=== PATIENT | female | born 1975 | race American Indian/Alaskan Native ===

== ENCOUNTER 2017-07-20 11:05 | Inpatient (IN) | payer BC ==
[2017-07-20 11:58] LABS: Hematocrit 22.3 % (30.3-42.9); Hemoglobin 6.7 gm/dl (10.1-14.3); Red Blood Count 3.58 M/mm3 (3.65-5.03); Red Cell Distribution Width 20.8 % (13.2-15.2)
[2017-07-20] MEDS ORDERED: NACL 0.9% 500 ML 500 ML IV ONE (12:14)
--- NOTE | 2017-07-20 13:01 | Emergency Department Report ---
- General Chief complaint: Weakness Stated complaint: VAG BLEED Time Seen by Provider: 07/20/17 11:54 Source: patient Mode of arrival: Ambulatory Limitations: No Limitations - History of Present Illness Initial comments: 42-year-old female with a past medical history of anemia, fibroids (previously treated with myomectomy in 2006) presents to the hospital with complains of vaginal bleeding, weakness, fatigue, and dizziness and thinks she is anemic again. Patient has a history of iron deficiency anemia and has required blood transfusion in the past. She is taking iron tablets 25 mg once a day but has not taken any for the past 2 days due to nausea and GI upset. Patient's menstrual cycle since July 12 blood bleeding increased since last night. This morning patient required 2 pads and one tampon at one time but has not used any additional past tampon. Anemia symptoms include fatigue, generalized weakness, and lightheadedness. No syncope reported. Intermittent suprapubic cramps about significant pain - Related Data Home Medications Medication Instructions Recorded Confirmed Last Taken Ferrous Sulfate [Iron] 325 mg PO QDAY 07/20/17 07/20/17 07/18/17 Allergies Allergy/AdvReac Type Severity Reaction Status Date / Time Penicillins Allergy Anaphylaxis Verified 07/20/17 11:24 shellfish derived Allergy Anaphylaxis Verified 07/20/17 11:24 Sulfa (Sulfonamide Allergy Rash Verified 07/20/17 11:24 Antibiotics) ED Review of Systems ROS: Stated complaint: VAG BLEED Other details as noted in HPI Comment: All other systems reviewed and negative ED Past Medical Hx - Past Medical History Previous Medical History?: Yes Additional medical history: Anemia, fibroids - Surgical History Past Surgical History?: Yes Additional Surgical History: 2007 Myomectomy - Social History Smoking Status: Never Smoker Substance Use Type: None - Medications Home Medications: Home Medications Medication Instructions Recorded Confirmed Last Taken Type Ferrous Sulfate [Iron] 325 mg PO QDAY 07/20/17 07/20/17 07/18/17 History ED Physical Exam - General Limitations: No Limitations - Other Other exam information: General: No limitations, patient is alert in no acute distress Head exam: Atraumatic, normocephalic Eyes exam: Normal appearance ENT: Moist mucous membrane, normal oropharynx Neck exam: Normal inspection, full range of motion Respiratory exam: Clear to auscultation bilateral, no wheezes, rales, crackles Cardiovascular: Normal rate and rhythm, normal heart sounds Abdomen: Soft, nondistended, suprapubic tenderness, with normal bowel sounds, no rebound, or guarding Extremity: Full range of motion normal inspection no deformity Back: Normal Inspection, full range of motion, no tenderness Neurologic: Alert, oriented x3, cranial nerves intact, no motor or sensory deficit Psychiatric: normal affect, normal mood Skin: Warm, dry, intact ED Course Vital Signs 07/20/17 07/20/17 07/20/17 11:19 12:22 12:30 Temperature 98.2 F Pulse Rate 97 H 86 83 Respiratory 16 11 L 13 Rate Blood Pressure 136/86 130/89 O2 Sat by Pulse 98 100 100 Oximetry 07/20/17 12:48 Temperature Pulse Rate Respiratory 20 Rate Blood Pressure O2 Sat by Pulse Oximetry - Consultations Consultation #1: 07/20/17 13:11 case d/w Dr dover. She came to eval pt in ed. request for Hospitalist to admit 07/20/17 13:19 Dr Dover agrees to admit pt ED Medical Decision Making - Lab Data Result diagrams: 07/20/17 11:42 07/20/17 12:47 Lab Results 07/20/17 07/20/17 07/20/17 Range/Units 11:30 11:42 12:47 WBC 6.4 (4.5-11.0) K/mm3 RBC 3.58 L (3.65-5.03) M/mm3 Hgb 6.7 L (10.1-14.3) gm/dl Hct 22.3 L (30.3-42.9) % MCV 62 L (79-97) fl MCH 19 L (28-32) pg MCHC 30 (30-34) % RDW 20.8 H (13.2-15.2) % Plt Count 467 H (140-440) K/mm3 PT (12.2-14.9) Sec. INR (0.87-1.13) APTT (24.2-36.6) Sec. Sodium 141 (137-145) mmol/L Potassium 3.9 (3.6-5.0) mmol/L Chloride 104.0 (98-107) mmol/L Carbon Dioxide 25 (22-30) mmol/L Anion Gap 16 mmol/L BUN 16 (7-17) mg/dL Creatinine 0.8 (0.7-1.2) mg/dL Estimated GFR > 60 ml/min BUN/Creatinine Ratio 20 % Glucose 94 (65-100) mg/dL Calcium 8.9 (8.4-10.2) mg/dL Blood Type A POSITIVE Antibody Screen Negative Crossmatch See Detail 07/20/17 Range/Units 12:47 WBC (4.5-11.0) K/mm3 RBC (3.65-5.03) M/mm3 Hgb (10.1-14.3) gm/dl Hct (30.3-42.9) % MCV (79-97) fl MCH (28-32) pg MCHC (30-34) % RDW (13.2-15.2) % Plt Count (140-440) K/mm3 PT 13.8 (12.2-14.9) Sec. INR 1.01 (0.87-1.13) APTT 29.8 (24.2-36.6) Sec. Sodium (137-145) mmol/L Potassium (3.6-5.0) mmol/L Chloride (98-107) mmol/L Carbon Dioxide (22-30) mmol/L Anion Gap mmol/L BUN (7-17) mg/dL Creatinine (0.7-1.2) mg/dL Estimated GFR ml/min BUN/Creatinine Ratio % Glucose (65-100) mg/dL Calcium (8.4-10.2) mg/dL Blood Type Antibody Screen Crossmatch hcg neg - EKG Data -: EKG Interpreted by [place] EKG shows normal: sinus rhythm, axis (40), QRS complexes (qrsd 79), ST-T waves ( no stemi/t wave) Rate: normal (81) - EKG Data When compared to previous EKG there are: previous EKG unavailable - Radiology Data US transvag/pelvic: pending - Medical Decision Making Symptomatic anemia Secondary to iron deficiency and acute blood loss secondary to menorrhagia Menorrhagia Likely secondary to uterine fibroid US pending 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 ED Disposition Clinical Impression: Menorrhagia, Symptomatic anemia, Iron deficiency anemia Disposition: OP ADMIT IP TO THIS HOSP Is pt being admited?: Yes Condition: Stable Time of Disposition: 13:17 (Margarita Chisholm)
[2017-07-20 13:05] LABS: INR 1.01 (0.87-1.13)
[2017-07-20 13:06] LABS: Partial Thromboplastin Time 29.8 Sec. (24.2-36.6)
[2017-07-20 13:12] LABS: BUN/Creatinine Ratio 20; Blood Urea Nitrogen 16 mg/dL (7-17); Calcium 8.9 mg/dL (8.4-10.2)
[2017-07-20 13:13] LABS: Hemolysis Index 0
--- NOTE | 2017-07-20 13:20 | History and Physical Report ---
History of Present Illness Date of examination: 07/20/17 Date of admission: 07/20/17 Chief complaint: heavy vaginal bleeding History of present illness: This is a 42 yo came to Er for bleeding for the past several days. She states that she has ahx of fibroids and has appt with Dr. Leger next week for uterine embolization. She states that she has had a myomectomy in 2006 and has not had any f/u. She states that she has changed her pad every 1 hr. She denies any lightheadeness nor dizziness. She is . 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 denies: chlamydia, gonorrhea, hepatitis B, hepatitis C, herpes, HIV, syphilis Family/Genetic History: heart disease (father) Social history: no significant social history, . denies: smoking, alcohol abuse, prescription drug abuse Medications and Allergies Allergies Allergy/AdvReac Type Severity Reaction Status Date / Time Penicillins Allergy Anaphylaxis Verified 07/20/17 11:24 shellfish derived Allergy Anaphylaxis Verified 07/20/17 11:24 Sulfa (Sulfonamide Allergy Rash Verified 07/20/17 11:24 Antibiotics) Review of Systems All systems: negative - Vital Signs Vital signs: Vital Signs Temp Pulse Resp BP Pulse Ox 98.2 F 97 H 16 136/86 98 07/20/17 11:19 07/20/17 11:19 07/20/17 11:19 07/20/17 11:19 07/20/17 11:19 Temp Pulse Resp BP Pulse Ox 98.2 F 83 20 130/89 100 07/20/17 11:19 07/20/17 12:30 07/20/17 12:48 07/20/17 12:30 07/20/17 12:30 - Physical Exam Breasts: Positive: normal Cardiovascular: Regular rate, Normal S1 Lungs: Positive: Clear to auscultation, Normal air movement Abdomen: Positive: normal appearance, soft, normal bowel sounds. Negative: distention, tenderness, guarding Genitourinary (Female): Positive: normal external genitalia, normal perenium Vulva: both: normal Vagina: Positive: normal moisture Cervix: Negative: lesion Uterus: Positive: enlarged. Negative: tender Adnexa: both: normal Anus/Rectum: Positive: normal perianal skin Extremities: Positive: normal Deep Tendon Reflex Grade: Normal +2 Results Result Diagrams: 07/20/17 11:42 07/20/17 12:47 Abnormal lab results 07/20/17 07/20/17 Range/Units 11:30 11:42 RBC 3.58 L (3.65-5.03) M/mm3 Hgb 6.7 L (10.1-14.3) gm/dl Hct 22.3 L (30.3-42.9) % MCV 62 L (79-97) fl MCH 19 L (28-32) pg RDW 20.8 H (13.2-15.2) % Plt Count 467 H (140-440) K/mm3 Crossmatch See Detail All other labs normal. Assessment and Plan A/P Menorrhagia, uterine fibroids, severe anemia admit to [facility] await labs transfuse 2 u of rbc will call interventional radiology as patient interested in [place] ( has appt next week with outside radiologist) Discussed tx of fibroids- at this time patient declines any surgical intervention
[2017-07-20] MEDS ORDERED: TYLENOL PO PRN (13:25)
[2017-07-20] MEDS ORDERED: MOTRIN PO PRN (13:25)
[2017-07-20] MEDS ORDERED: AMBIEN PO PRN (13:25)
[2017-07-20] MEDS ORDERED: NORCO 5/325 PO PRN (13:25)
[2017-07-20] MEDS ORDERED: PERCOCET 5/325 PO PRN (13:25)
[2017-07-20] MEDS ORDERED: SODIUM CHLORIDE FLUSH SYRINGE 10 ML IV PRN (13:25)
[2017-07-20] MEDS ORDERED: ZOFRAN IV PRN (13:25)
[2017-07-20] MEDS ORDERED: PHENERGAN PR PRN (13:25)
[2017-07-20 14:55] LABS: % Iron Saturation 6.06 %
--- NOTE | 2017-07-20 15:16 | Ultrasound Report ---
ULTRASOUND PELVIS COMPLETE - TRANSABDOMINAL AND TRANSVAGINAL: INDICATION: Vaginal bleeding and anemia. COMPARISON: None similar at this institution. FINDINGS: Transabdominal and transvaginal pelvic sonography performed in this patient with LMP of 07/13/2017 demonstrates approximately 17.3 x 9.8 x 11 cm heterogeneous uterus with multiple fibroids, few dominant ones as follows: 1. A lower uterine fibroid posteriorly is approximately 5.2 x 5.3 x 5.8 cm on transabdominal image 13. 2. A mid uterine, possibly intramural or submucosal fibroid is approximately 3.7 x 4.9 x 3.3 cm, image 16. 3. Three anterosuperior fibroids, one 3.9 x 2.6 x 3.7 cm, image 19, another 4.5 x 4.3 x 5.3 cm, image 22 and the third 3 x 1.6 x 3.1 cm, image 25. No significant pelvic free fluid. Endometrial stripe not adequately visualized. Neither of the ovaries seen. CONCLUSION: Enlarged uterus with multiple fibroids and nonvisualization of endometrial stripe or the ovaries, as detailed above. Please correlate. Thank you for the opportunity to participate in this patient's care.
[2017-07-20] MEDS ORDERED: NACL 0.9% 500 ML 500 ML ONE (16:43)
[2017-07-20] MEDS ORDERED: NACL 0.9% 250ML 250 ML ONE (16:44)
[2017-07-20] MEDS ORDERED: NACL 0.9% 500 ML IV ONE (17:00)
[2017-07-20] MEDS ORDERED: SODIUM CHLORIDE FLUSH SYRINGE 10 ML IV SCH (22:00)
--- NOTE | 2017-07-20 22:02 | Event Note ---
Date: 07/20/[address] Levy today. We discussed an appropriate plan for this patient. we collectively agreed to have the patient follow up with me in clinic early next week. The patient will get an MRI of the pelvis with and without contrast in the meantime, in order to have a more thorough assessment of her uterine fibroids. I will most likely proceed with the uterine fibroid embolization this coming one today, barring any unforeseen circumstances.
[2017-07-21 02:12] LABS: Hematocrit 25.6 % (30.3-42.9); Hemoglobin 7.9 gm/dl (10.1-14.3)
[2017-07-21] MEDS ORDERED: NACL 0.9% 500 ML 500 ML IV ONE (09:05)
--- NOTE | 2017-07-21 09:11 | Progress Note ---
Assessment and Plan A/P HD#2 Menorrhagia, uterine fibroids, severe anemia s/p 2 U increased form 6 to 7.9 transfuse 2 more units plan for MRI today to map out fibroids for UAE next week after MRI at 10a and 2 more units of blood will d/c home with f/u with Dr. Bills Subjective - Subjective Date of service: 07/21/17 Principal diagnosis: menorrhagia, severe anemia, uterine fibroids Interval history: This is a 42 yo came to Er for bleeding for the past several days. She states that she has ahx of fibroids and has appt with Dr. Leger next week for uterine embolization. She states that she has had a myomectomy in 2006 and has not had any f/u. She states that she has changed her pad every 1 hr. She denies any lightheadeness nor dizziness. She is . Patient reports: appetite normal, voiding normally, pain well controlled, flatus , ambulating normally Objective - Vital Signs Latest vital signs: Vital Signs Temp Pulse Pulse Resp BP BP Pulse Ox 07/21/17 03:54 98.5 F 72 18 133/81 07/21/17 01:00 98.6 F 64 20 143/81 07/20/17 21:45 98.3 F 77 18 138/92 07/20/17 21:15 98.3 F 78 18 121/80 98 07/20/17 20:45 98.3 F 78 18 121/81 98 07/20/17 20:15 98.6 F 85 18 144/79 98 07/20/17 20:00 98.2 F 85 18 132/77 99 07/20/17 19:50 98.0 F 83 18 131/82 99 07/20/17 19:49 97.8 F 82 18 130/79 98 07/20/17 19:45 18 07/20/17 19:19 97.4 F L 78 18 128/88 98 07/20/17 18:49 97.3 F L 83 18 130/79 98 07/20/17 18:19 98.6 F 83 20 124/70 07/20/17 17:49 98.5 F 84 20 127/75 07/20/17 17:48 98.5 F 84 16 129/72 07/20/17 17:34 98.9 F 83 20 136/72 07/20/17 16:33 20 07/20/17 15:27 98.0 F 86 26 H 136/79 100 07/20/17 15:20 98.9 F 83 83 20 136/76 07/20/17 15:01 136/79 83 L 07/20/17 14:49 136/79 07/20/17 14:40 136/79 07/20/17 13:30 136/79 92 07/20/17 13:16 136/79 07/20/17 13:02 136/79 82 L 07/20/17 12:48 20 07/20/17 12:45 87 17 136/79 07/20/17 12:30 83 13 130/89 100 07/20/17 12:22 86 11 L 100 07/20/17 11:19 98.2 F 97 H 16 136/86 98 Intake and Output 07/20/17 07/21/17 07/21/17 23:59 07:59 15:59 Intake Total 500 120 Balance 500 120 Intake: Intake, Free Water 120 Blood Product 500 Leukoreduced Red Blood 250 Cells Unit [id number] Leukoreduced Red Blood 250 Cells Unit [id number] Other: Voiding Method Toilet # Voids Void 1 1 - Exam Breasts: Present: deferred Cardiovascular: Present: Regular rate, Normal S1 Lungs: Present: Clear to auscultation, Normal air movement Abdomen: Present: normal appearance, soft, normal bowel sounds. Absent: distention, tenderness, guarding Uterus: Present: fundal height at umbilicus. Absent: normal Extremities: Present: normal Deep Tendon Reflex Grade: Normal +2 - Labs Labs: Abnormal lab results 07/20/17 07/20/17 07/20/17 Range/Units 11:30 11:42 12:47 RBC 3.58 L (3.65-5.03) M/mm3 Hgb 6.7 L (10.1-14.3) gm/dl Hct 22.3 L (30.3-42.9) % MCV 62 L (79-97) fl MCH 19 L (28-32) pg RDW 20.8 H (13.2-15.2) % Plt Count 467 H (140-440) K/mm3 Iron 24 L (37-170) ug/dL Crossmatch See Detail 07/21/17 Range/Units 01:25 RBC (3.65-5.03) M/mm3 Hgb 7.9 L (10.1-14.3) gm/dl Hct 25.6 L (30.3-42.9) % MCV (79-97) fl MCH (28-32) pg RDW (13.2-15.2) % Plt Count (140-440) K/mm3 Iron (37-170) ug/dL Crossmatch
[2017-07-21 20:36] LABS: Hemoglobin 9.5 gm/dl (10.1-14.3)
--- NOTE | 2017-07-22 00:32 | Magnetic Resonance Report ---
FINAL REPORT EXAM: MR PELVIS WO/W CON HISTORY: Pre evaluation for uterine fibroids for [place] TECHNIQUE: Multiplanar MRI imaging was obtained of the pelvis as follows: Axial T1, T2; sagittal T2 fat sat T1 fat sat; coronal T1, T2 and triplane post-contrast imaging. PRIORS: None available FINDINGS: Uterus: Anteverted. Diffusely heterogeneous and enlarged measuring 15.0 cm superior to inferior by 9.7 cm anterior to posterior by 12.6 cm transverse (sagittal T2 image 27; axial T2 image 24). The largest posterior uterine body fibroid measures 4.2 cm in diameter. Small nabothian cysts. Marked mass effect on the superior urinary bladder. On the postcontrast images, the majority of the uterine fibroids heterogeneously enhance. Junctional zone: Heterogeneous and mildly thickened. Endometrium: The endometrial morphology is distorted secondary to multifocal fibroids. Thin amount of fluid is present within the endometrium. Uterine fibroids: Too numerous to count fibroids throughout the uterine body and fundus. The majority of the uterine fibroids are sub mucosal and intramural. Ovaries: The ovaries are visualized and appear normal in size noting small peripheral follicles. Miscellaneous: Incidental disc bulge at L4-L5 with mild foraminal narrowing. There is no high-grade spinal canal stenosis. No significant free fluid within the pelvis. IMPRESSION: 1. Enlarged uterus measuring 15.0 x 9.7 x 12.6 cm with numerous heterogeneously enhancing intramural and submucosal uterine fibroids. Findings result in mass effect on the urinary bladder. 2. Mild thickening of the junctional zone which may be secondary to adenomyosis. 3. Ovaries appear normal.
--- NOTE | 2017-07-22 07:39 | Progress Note ---
Assessment and Plan A/P HD#3 Menorrhagia, uterine fibroids, severe anemia s/p 2 U increased form 6 to 7.9 another unit given yesterday current hemoglobin 9.5 MRI reviewed [place] tentatively scheduled for Wed. appt with Dr. Matamoros tomorrow d/c home with ferrous sulfate and info on f/u Subjective - Subjective Date of service: 07/22/17 Principal diagnosis: menorrhagia, severe anemia, uterine fibroids Interval history: This is a 42 yo came to Er for bleeding for the past several days. She states that she has ahx of fibroids and has appt with Dr. Leger next week for uterine embolization. She states that she has had a myomectomy in 2006 and has not had any f/u. She states that she has changed her pad every 1 hr. She denies any lightheadeness nor dizziness. She is . Patient reports: appetite normal, voiding normally, pain well controlled, flatus , ambulating normally Objective - Vital Signs Latest vital signs: Vital Signs Temp Pulse Resp BP BP Pulse Ox 07/22/17 04:43 98.6 F 68 18 132/77 07/22/17 00:40 98.7 F 65 18 128/72 07/21/17 20:00 99 F 76 18 136/78 07/21/17 17:00 98.7 F 73 17 134/77 100 07/21/17 16:41 98.8 F 75 18 137/80 98 07/21/17 16:30 98.8 F 75 18 137/80 98 07/21/17 16:00 99.1 F 73 19 140/85 144/93 98 07/21/17 15:30 99.0 F 79 18 140/85 98 07/21/17 15:16 99.0 F 79 18 140/85 98 07/21/17 15:00 99.0 F 79 18 140/85 98 07/21/17 14:40 99.0 F 84 18 145/82 97 07/21/17 14:30 99.0 F 84 18 145/82 97 07/21/17 14:15 98.5 F 79 18 122/67 97 07/21/17 13:42 98.5 F 79 18 122/67 97 07/21/17 12:03 98.6 F 81 18 125/64 98 07/21/17 08:05 98.7 F 83 18 141/87 141/87 98 Intake and Output 07/21/17 07/21/17 07/22/17 15:59 23:59 07:59 Intake Total 720 490 120 Balance 720 490 120 Intake: Oral 720 Intake, Free Water 240 120 Blood Product 0 250 Leukoreduced Red Blood 0 250 Cells Unit [id number] Other: Total, Intake Amount 360 Voiding Method Toilet # Voids Void 1 1 1 # Bowel Movements 1 - Exam Breasts: Present: deferred Cardiovascular: Present: Regular rate, Normal S1 Lungs: Present: Clear to auscultation, Normal air movement Abdomen: Present: normal appearance, soft, normal bowel sounds. Absent: distention, tenderness Uterus: Present: fundal height at umbilicus. Absent: tenderness Extremities: Present: normal Deep Tendon Reflex Grade: Normal +2 - Labs Labs: Abnormal lab results 07/20/17 07/21/17 Range/Units 11:30 19:58 Hgb 9.5 L (10.1-14.3) gm/dl Crossmatch See Detail
--- NOTE | 2017-07-22 07:43 | Discharge Summary ---
Providers - Providers Date of Admission: 07/20/17 13:26 Date of discharge: 07/22/17 Attending physician: CLOVIS HAQUE MD 07/20/17 12:39 Consult to Physician [CONS] Urgent Comment: DR Tory HAQUE NOTIFIED 1240 Consulting Provider: CLOVIS HAQUE Physician Instructions: Reason For Exam: vaginal bleeding, anemia 07/20/17 13:25 Consult to Physician [CONS] Routine Comment: Consulting Provider: YOBANI BILLS Physician Instructions: Reason For Exam: uterine fibroids Primary care physician: RUDOLPH SCHMIDT Hospitalization Reason for admission: other (menorrhagia, severe anemia and uterine fibroids ) Procedure: other (blood transfusion of 3 U pRBC) Hospital course: 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 patient hemoglobin 6. Transfused 3 U which increased to 9.5. VSS. Patient had US and MRI showing multiple fibroids. consulted with Dr. Bills interventional radiologist with plan for f/u tomorrow in office and planned [place] on Sun. Condition at discharge: Good Disposition: DC-01 TO HOME OR SELFCARE Plan - Discharge Medications Prescriptions: Ferrous Sulfate 325 mg PO TID #60 tablet.dr - Provider Discharge Summary Activity: routine Diet: routine Instructions: routine Additional instructions: [] Smoking cessation referral if applicable(refer to patient education folder for contact #) [] Refer to [facility] Booklet Call your doctor immediately for: * Fever > 100.5 * Heavy vaginal bleeding ( >1 pad per hour) * Severe persistent headache * Shortness of breath * Reddened, hot, painful area to leg or breast * Drainage or odor from incision. * Keep incision clean and dry at all times and follow doctor's instructions regarding bathing/showering - Follow up plan Follow up: RUDOLPH SCHMIDT MD [Primary Care Provider] - 07/23/17 YOBANI BILLS MD [Staff Physician] - 07/23/17
[2017-07-22 08:45] VITALS: BP 133/84
== END 2017-07-22 10:45 | disposition home or self-care (01) | DRG 761 ==
LOC: ED 11:05 → OB 13:26
PROVIDERS: ADMIT Obstetrics & Gynecology; ATTEND Obstetrics & Gynecology
PROC: 30233N1 Transfusion of Nonautologous Red Blood Cells into Peripheral Vein, Percutaneous Approach (ICD-10-PCS; principal; 2017-07-20)
DX: D25.9 Leiomyoma of uterus, unspecified (principal); N92.0 Excessive and frequent menstruation with regular cycle; D50.9 Iron deficiency anemia, unspecified; Z82.49 Family history of ischemic heart disease and other diseases of the circulatory system; Z88.0 Allergy status to penicillin; Z88.2 Allergy status to sulfonamides; Z91.013 Allergy to seafood; Z79.899 Other long term (current) drug therapy
CPT/HCPCS: 36415; 72197; 76830; 76856; 80048; 83550; 84703; 85014; 85018; 85027; 85610; 85730; 86850; 86900; 86901; 86920; 93005; 93010; A9577; J7040; J7050; P9016

== ENCOUNTER 2017-08-06 14:48 | Inpatient (IN) | payer BC ==
[2017-08-06 15:44] LABS: Bilirubin,Urine NEG (Negative); Blood,Urine NEG (Negative); Color,Urine Yellow (Yellow); Mucus,Urine FEW /HPF; Protein,Urine <15 mg/dL mg/dL (Negative); Urobilinogen,Urine < 2.0 mg/dL (<2.0); WBC,Urine < 1.0 /HPF (0.0-6.0)
[2017-08-06 15:46] LABS: HCG Qualitative,Urine Negative (Negative)
[2017-08-06] MEDS ORDERED: NACL 0.9% 1000 ML 1,000 ML IV ONE (16:34)
[2017-08-06] MEDS ORDERED: TYLENOL #3 PO ONE (16:34)
--- NOTE | 2017-08-06 17:07 | History and Physical Report ---
History of Present Illness Date of examination: 08/06/17 Date of admission: 08/06/17 Chief complaint: pelvic pain History of present illness: History of present illness: This is a 42 yo came to Er for pelvic pain. SHe has a known hx of large uterine fibroids. She has been in hospital with blood transfusion several weeks ago. Today she has increasing pelvic pain. 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 denies: chlamydia, gonorrhea, hepatitis B, hepatitis C, herpes, HIV, syphilis Family/Genetic History: heart disease (father) Social history: no significant social history, . denies: smoking, alcohol abuse, prescription drug abuse Medications and Allergies Allergies Allergy/AdvReac Type Severity Reaction Status Date / Time Penicillins Allergy Anaphylaxis Verified 07/20/17 11:24 shellfish derived Allergy Anaphylaxis Verified 07/20/17 11:24 Sulfa (Sulfonamide Allergy Rash Verified 07/20/17 11:24 Antibiotics) Review of Systems All systems: negative - Vital Signs Vital signs: Vital Signs Temp Pulse Resp BP Pulse Ox 98.2 F 97 H 16 136/86 98 07/20/17 11:19 07/20/17 11:19 07/20/17 11:19 07/20/17 11:19 07/20/17 11:19 Temp Pulse Resp BP Pulse Ox 98.2 F 83 20 130/89 100 07/20/17 11:19 07/20/17 12:30 07/20/17 12:48 07/20/17 12:30 07/20/17 12:30 - Physical Exam Breasts: Positive: normal Cardiovascular: Regular rate, Normal S1 Lungs: Positive: Clear to auscultation, Normal air movement Abdomen: Positive: normal appearance, soft, normal bowel sounds. Negative: distention, tenderness, guarding Genitourinary (Female): Positive: normal external genitalia, normal perenium Vulva: both: normal Vagina: Positive: normal moisture Cervix: Negative: lesion Uterus: Positive: enlarged. Negative: tender Adnexa: both: normal Anus/Rectum: Positive: normal perianal skin Extremities: Positive: normal Deep Tendon Reflex Grade: Normal +2 All other labs normal. Assessment and Plan A/P Menorrhagia, uterine fibroids, severe anemia admit to [facility] consult with interventaional radiology Dr. Bills Past History Past Medical History: no pertinent history Past Surgical History: no surgical history Family/Genetic History: none Social history: no significant social history, . denies: smoking, alcohol abuse, prescription drug abuse Medications and Allergies Allergies Allergy/AdvReac Type Severity Reaction Status Date / Time Penicillins Allergy Anaphylaxis Verified 07/20/17 11:24 shellfish derived Allergy Anaphylaxis Verified 07/20/17 11:24 Sulfa (Sulfonamide Allergy Rash Verified 07/20/17 11:24 Antibiotics) Home Medications Medication Instructions Recorded Confirmed Last Taken Type Ferrous Sulfate [Iron] 325 mg PO QDAY 07/20/17 07/20/17 07/18/17 History Ferrous Sulfate 325 mg PO TID #60 tablet. 07/21/17 Unknown Rx Fluconazole [Diflucan TAB] 150 mg PO ONCE #1 tablet 07/22/17 Unknown Rx metroNIDAZOLE [Flagyl] 500 mg PO Q12HR #14 tab 07/22/17 Unknown Rx Active Meds: Active Medications Sodium Chloride (Nacl 0.9% 1000 Ml) 1,000 mls @ 999 mls/hr IV BOLUS ONE Stop: 08/06/17 17:34 - Vital Signs Vital signs: Vital Signs Temp Pulse Resp BP Pulse Ox 98.7 F 79 17 154/83 100 08/06/17 14:58 08/06/17 14:58 08/06/17 14:58 08/06/17 14:58 08/06/17 14:58 Temp Pulse Resp BP Pulse Ox 98.8 F 83 15 131/72 100 08/06/17 16:02 08/06/17 16:02 08/06/17 16:02 08/06/17 16:02 08/06/17 16:02 - Physical Exam Breasts: Positive: normal Cardiovascular: Regular rate, Normal S1 Lungs: Positive: Normal air movement Abdomen: Positive: normal appearance, soft, normal bowel sounds. Negative: distention, tenderness, guarding Genitourinary (Female): Positive: normal external genitalia Uterus: Positive: enlarged Extremities: Positive: normal Deep Tendon Reflex Grade: Normal +2 Results All other labs normal.
--- NOTE | 2017-08-06 17:12 | Emergency Department Report ---
HPI - General Chief Complaint: Abdominal Pain Time Seen by Provider: 08/06/17 15:46 - HPI HPI: The patient is a 42-year-old female who presents for evaluation of abdominal pain and vaginal bleeding. The patient has history of fibroids and severe anemia secondary to chronic vaginal bleeding. The patient reports 3 days of constant and severe vaginal bleeding, associated with cramping suprapubic abdominal pain of same duration, mild in severity, exacerbated with movement. The patient denies fever, chills, night sweats, diarrhea, blood in the stool, dark tarry stool, dysuria, hematuria, flank pain, genital discharge, inability to pass flatus. ED Past Medical Hx - Past Medical History Hx Congestive Heart Failure: No Hx Diabetes: No Hx Asthma: No Hx COPD: No Additional medical history: Anemia, fibroids - Surgical History Additional Surgical History: 2007 Myomectomy - Social History Smoking Status: Never Smoker Substance Use Type: None - Medications Home Medications: Home Medications Medication Instructions Recorded Confirmed Last Taken Type Ferrous Sulfate 325 mg PO TID #60 tablet. 07/21/17 Unknown Rx ED Review of Systems ROS: Stated complaint: PELVIC PAIN Other details as noted in HPI Constitutional: denies: fever ENT: denies: throat or neck pain Respiratory: denies: cough, shortness of breath Cardiovascular: denies: chest pain Endocrine: denies unexplained weight loss or gain Gastrointestinal: reports: abdominal pain, nausea Genitourinary: reprots vb denies: dysuria Musculoskeletal: denies: leg swelling Skin: denies: rash Neurological: denies: headache Hematological/Lymphatic: denies: easy bleeding or easy bruising Psych: denies sadness or hopelessness Physical Exam - Physical Exam Vital Signs: Vital Signs 08/06/17 08/06/17 14:58 16:02 Temperature 98.7 F 98.8 F Pulse Rate 79 83 Respiratory 17 15 Rate Blood Pressure 154/83 Blood Pressure 131/72 [Left] O2 Sat by Pulse 100 100 Oximetry Physical Exam: General: well-nourished, well-developed, no acute distress Head: Normocephalic, atraumatic Eyes: normal sclera ENT: Mucous membranes are pink and moist Neck: trachea midline, neck supple, No neck stiffness, no cervical adenopathy Respiratory: Breath sounds equal bilaterally, no wheezing, rales, or rhonchi Cardio: S1 and S2 present, no murmurs, rubs, gallops, capillary refill is brisk Abdomen: Normoactive bowel sounds, soft abdomen, superpubic tenderness to palpation present, no rigidity, no guarding or rebound tenderness Chest WALL/Back: No tenderness to palpation of the chest wall, no CVA tenderness with percussion Musc: No pitting edema Skin: No rash Neuro: no facial drooping, normal speech Psych: Normal affect ED Course Vital Signs 08/06/17 08/06/17 14:58 16:02 Temperature 98.7 F 98.8 F Pulse Rate 79 83 Respiratory 17 15 Rate Blood Pressure 154/83 Blood Pressure 131/72 [Left] O2 Sat by Pulse 100 100 Oximetry ED Medical Decision Making - Lab Data Result diagrams: 08/06/17 17:01 08/06/17 17:01 - Medical Decision Making The patient was seen and examined by myself. The patient is placed on a desk monitor and continuous pulse ox. On initial evaluation, the patient was found to be in no distress. Evaluation orders are placed. IV access is established and the patient is given 1 L normal saline fluid bolus and tylenol for pain. Lab results were non-concerning including WBC, hemoglobin, hematocrit, electrolytes, renal function. The patient's switchboard operator receptionist Dr. Levy was contacted. She requested the patient be admitted to the hospital for definitive treatment as she continues to experience vaginal bleeding. The patient is admitted to Dr. Levy's service in guarded condition. Critical care attestation.: If time is entered above; I have spent that time in minutes in the direct care of this critically ill patient, excluding procedure time. ED Disposition Clinical Impression: Acute suprapubic pain, Vaginal bleeding Menorrhagia Qualifiers: Menorrahagia type: with irregular cycle Qualified Code(s): N92.1 - Excessive and frequent menstruation with irregular cycle Disposition: 09 OP ADMIT IP TO THIS HOSP Is pt being admited?: Yes Does the pt Need Aspirin: No (acute bleeding) Condition: Fair Instructions: Abdominal Pain (ED) Time of Disposition: 17:02
[2017-08-06 17:28] LABS: Hematocrit 32.9 % (30.3-42.9); Hemoglobin 10.1 gm/dl (10.1-14.3); Mean Corpuscular HGB Conc 31 % (30-34); Mean Corpuscular Volume 74 fl (79-97); Platelet Count 302 K/mm3 (140-440); Red Blood Count 4.43 M/mm3 (3.65-5.03)
[2017-08-06 17:34] LABS: Mean Corpuscular Hemoglobin 23 pg (28-32); Red Cell Distribution Width 29.9 % (13.2-15.2)
[2017-08-06 17:42] LABS: INR 0.98 (0.87-1.13); Partial Thromboplastin Time 32.4 Sec. (24.2-36.6)
[2017-08-06 17:49] LABS: BUN/Creatinine Ratio 13; Blood Urea Nitrogen 9 mg/dL (7-17); Calcium 8.9 mg/dL (8.4-10.2); Hemolysis Index 5
[2017-08-06 19:04] LABS: Anisocytosis 2+; Basophils % (Manual) 0 % (0.0-1.8); Hypochromasia 2+; Total Cells Counted 100
[2017-08-06 19:05] LABS: Ovalocytes 2+; Platelet Estimate Consistent w Auto; Tear Drop Cells Few
[2017-08-06] MEDS ORDERED: TYLENOL #3 PO PRN (23:49)
--- NOTE | 2017-08-07 09:06 | Event Note ---
Date: 08/07/17 This is a patient known to me - she had seen me in the office for a uterine fibroid embolization evaluation. However during the pre-approval period, she again became symptomatic with pain, weakness, and fatigue. She has been admitted to head machinist, and I will perform the procedure as an inpatient.
[2017-08-07] MEDS ORDERED: HEPARIN 10,000 UNITS/10 ML ONE (10:29)
[2017-08-07] MEDS ORDERED: HEPARIN/NS 5000 UNIT/500ML(CATH LAB) 1,000 ML IR ONE (10:29)
[2017-08-07] MEDS ORDERED: XYLOCAINE 2% INFILTRATI ONE (10:29)
[2017-08-07] MEDS ORDERED: BENADRYL ONE (10:42)
[2017-08-07] MEDS ORDERED: NACL 0.9% 500 ML 500 ML ONE (10:44)
[2017-08-07] MEDS: VERSED ONE ×2 (10:55→11:17)
[2017-08-07] MEDS: SUBLIMAZE ONE ×2 (10:55→11:34)
[2017-08-07] MEDS ORDERED: NITROGLYCERIN SYRINGE 3 ML ONE (11:05)
[2017-08-07] MEDS ORDERED: CALAN ONE (11:05)
[2017-08-07] MEDS ORDERED: TORADOL ONE ×2 (11:11→12:16)
[2017-08-07] MEDS ORDERED: VERSED ONE (11:34)
[2017-08-07] MEDS ORDERED: SUBLIMAZE ONE (11:34)
[2017-08-07] MEDS ORDERED: CLEOCIN 600 MG/50 mL 600 MG/50 ML BAG IV NR (12:00)
[2017-08-07] MEDS ORDERED: TORADOL PO PRN (12:45)
[2017-08-07] MEDS ORDERED: ZOFRAN ODT PO PRN (12:45)
[2017-08-07] MEDS ORDERED: COLACE PO PRN (12:46)
[2017-08-07] MEDS ORDERED: NORCO 7.5/325 PO PRN (12:47)
--- NOTE | 2017-08-07 12:50 | Post Operative Note ---
Pre-op diagnosis: Leiomyoma of the uterus Post-op diagnosis: same Findings: Markedly enlarged uterus with multiple fibroids Procedure: UFE/UAE Anesthesia: local Surgeon: YOBANI YATES Estimated blood loss: none Pathology: none Condition: stable Disposition: floor
[2017-08-07] MEDS: DILAUDID IV PRN ×2 (13:15→17:53)
--- NOTE | 2017-08-07 13:49 | Operative Report ---
Operative Report Operative Report: Procedure: 1. Ultrasound-guided access of the left radial artery 2. Left internal iliac arteriography 3. Left uterine arteriography 4. Embolization of the left uterine artery with 500-700 and 700-900 embospheres. 5. Right internal iliac arteriography 6. Right uterine arteriography 7. Embolization of the right uterine artery with 500-700 and 700-900 embospheres. Date of Procedure: 08/07/2017 History/Indication: 42-year-old female with menorrhagia refractory to medical treatment Physician: Katrina Bills MD Technique/Procedural Details: The patient was placed in the supine position and prepped and draped in the usual sterile fashion. A timeout was performed. Local anesthetic was administered. Under continuous ultrasound guidance, the left radial artery was accessed with a 21-gauge needle. This was exchanged over a wire for a slender 5 Swazi glide sheath. A combination of a Glidewire and 5 Swazi vertebral catheter was used to select the left internal iliac artery. Arteriography was performed. Through the 5 guamanian catheter, a Fathom wire and [employer] Noteestro microcatheter were coxially inserted and used to select the left uterine artery, and arteriography was again performed. Thereafter, three vials of 500-700 embosphere and one vial of 700 - 900 was used to embolize the left uterine artery. A similar series of steps was used to embolized the right uterine artery but with two vials of 500-700 embosphere and one vial of 700 - 900 embospheres. All wires and catheters were removed, and hemostasis was achieved with a pressure dressing. Discussion: The uterus is markedly enlarged, with the right side being dominant. There is stasis of flow after embolization, without significant reflux at any point. Specimen: None EBL: <5 cc
--- NOTE | 2017-08-07 13:54 | Discharge Summary ---
Providers - Providers Date of Admission: 08/06/17 17:12 Attending physician: NATALIE KENYON Interventional Radiology Primary care physician: AUTO CRANE DRIVER Hospitalization Reason for admission: Pain Condition: Good Pertinent studies: Pelvic MRI Procedures: Uterine artery embolization Hospital course: The patient presented to the ER with severe pain related to uterine fibroids. She was admitted to Inspection Clerk for further management. An IR consult was obtained, as the patient was known to Dr. Bills. The following morning, a successful uterine artery embolization was performed. The patient's pain was well controlled afterwards and she was discharged. Disposition: DC-30 STILL A PATIENT Core Measure Documentation - Palliative Care Palliative Care/ Comfort Measures: Not Applicable - Core Measures Any of the following diagnoses?: none Exam - Constitutional Vitals: Temp Pulse Resp BP Pulse Ox 98.5 F 81 18 122/77 96 08/07/17 08:52 08/07/17 08:52 08/07/17 08:52 08/07/17 08:52 08/07/17 08:52 General appearance: Present: no acute distress, well-nourished - EENT Eyes: Present: PERRL ENT: hearing intact, clear oral mucosa - Neck Neck: Present: supple, normal ROM - Respiratory Respiratory effort: normal Respiratory: bilateral: CTA - Cardiovascular Heart Sounds: Present: S1 & S2. Absent: rub, click - Extremities Extremities: pulses symmetrical, No edema Peripheral Pulses: within normal limits - Abdominal General gastrointestinal: Present: soft, tender (mild), non-distended, normal bowel sounds Female genitourinary: Present: normal - Integumentary Integumentary: Present: clear, warm, dry - Musculoskeletal Musculoskeletal: gait normal, strength equal bilaterally - Psychiatric Psychiatric: appropriate mood/affect, intact judgment & insight - Neurologic Neurologic: CNII-XII intact, moves all extremities Plan Activity: advance as tolerated Weight Bearing Status: Full Weight Bearing Diet: regular Wound: keep clean and dry Follow up with: YOBANI BILLS MD [Staff Physician] - 08/17/17 CLOVIS HAQUE MD [Staff Physician] - 14 Days Forms: Work/School Release Form Prescriptions: Docusate Sodium [Colace CAP] 100 mg PO BID PRN #20 capsule PRN Reason: Constipation HYDROcodone/APAP 7.5-325 [Century 7.5-325 mg TAB] 1 each PO Q4H PRN #15 tablet PRN Reason: Pain, Moderate (4-6) Ketorolac [Toradol] 10 mg PO Q4H PRN #30 tablet PRN Reason: Pain, Mild (1-3) Ondansetron [Zofran ODT TAB] 8 mg PO Q8H PRN #20 tab.rapdis PRN Reason: Nausea And Vomiting
[2017-08-07 19:17] VITALS: BP 153/83
== END 2017-08-07 19:48 | disposition home or self-care (01) | DRG 750 ==
LOC: ED 14:48 → OB 17:12
PROVIDERS: ADMIT Obstetrics & Gynecology; ATTEND Obstetrics & Gynecology
PROC: 04LF3DU Occlusion of Left Uterine Artery with Intraluminal Device, Percutaneous Approach (ICD-10-PCS; principal; 2017-08-07)
PROC: 04LE3DT Occlusion of Right Uterine Artery with Intraluminal Device, Percutaneous Approach (ICD-10-PCS; 2017-08-07)
PROC: B40 Imaging, Lower Arteries, Plain Radiography (ICD-10-PCS; 2017-08-07)
DX: D25.9 Leiomyoma of uterus, unspecified (principal); N93.9 Abnormal uterine and vaginal bleeding, unspecified; D64.9 Anemia, unspecified; N92.0 Excessive and frequent menstruation with regular cycle; Z88.2 Allergy status to sulfonamides; Z88.0 Allergy status to penicillin; Z91.013 Allergy to seafood; Z82.49 Family history of ischemic heart disease and other diseases of the circulatory system
CPT/HCPCS: 36415; 37243; 80048; 81001; 81025; 85007; 85025; 85610; 85730; 86850; 86900; 86901; 93005; 93010; 96360; C1769; C1887; J1170; J1200; J1644; J1885; J2250; J3010; J7030; J7040; Q0162; Q9967